=== PATIENT | male | born 1975 | race African-American/Black ===

== ENCOUNTER 2018-04-18 23:17 | Emergency (ER) | payer OTHER ==
[~2018-04-18] VITALS: Ht 177.8 cm; Wt 87.7 kg
--- OUTSIDE RECORDS SUMMARY | 2018-04-18 23:20 | XMS REPORT | Clinical Summary ---
Author Author [facility] Organization [facility] Address Unknown Phone Unavailable Care Team Providers Care Crochet Beader Name Role Phone Asked, No Pcp PCP Unavailable Allergies No Known Allergies Medications End Date Status Medication Sig Dispensed Refills Start Date Active sertraline (ZOLOFT) 25 MG Take 25 mg by 0 tablet mouth daily. Active traZODone (DESYREL) 100 Take 100 mg 0 MG tablet by mouth nightly. Active methylphenidate HCl Take by 0 (RITALIN ORAL) mouth. Active losartan-hydrochlorothiaz TK 1 T PO D 0 sridevi (HYZAAR) 50-12.5 mg 8 per tablet 01/06/2018 Discontinued lisinopril Take 10 mg by 0 (PRINIVIL,ZESTRIL) 10 mg mouth daily. tablet 08/16/2017 clindamycin (CLEOCIN) 300 Take 1 21 capsule 0 MG capsule capsule (300 8 mg total) by mouth 3 (three) times a day for 7 days. 12/21/2017 omeprazole (PriLOSEC) 20 Take 1 30 capsule 0 MG capsule capsule (20 8 mg total) by mouth daily for 30 days. 11/26/2017 ondansetron ODT (ZOFRAN Take 1 tablet 20 tablet 0 ODT) 4 MG disintegrating (4 mg total) 8 tablet by mouth every 8 (eight) hours as needed for nausea or vomiting for up to 5 days. 01/13/2018 traMADol (ULTRAM) 50 mg Take 1 tablet 9 tablet 0 tablet (50 mg total) 8 by mouth every 6 (six) hours as needed for severe pain for up to 9 doses. Active Problems Not on file Encounters Care Team Description Date Type Specialty Reyna Holder MD Abdominal pain, unspecified abdominal location (Primary Dx); Nausea and vomiting, intractability of vomiting not specified, unspecified vomiting type 01/06/2018 Emergency Emergency Medicine Gaston Jane MD Abdominal pain, unspecified abdominal location (Primary Dx); Hematuria, unspecified type 11/21/2017 Emergency Emergency Medicine Ita Norman NP 08/09/2017 Anesthesia Plastic Surgery Event Efrem Howard MD RELEASE, CARPAL TUNNEL W/ ULNAR NERVE DECOMPRESSION 08/09/2017 Surgery Plastic Surgery Efrem Howard MD 08/09/2017 Hospital Plastic Surgery Encounter Efrem Howard MD Preoperative testing (Primary Dx) 08/02/2017 Pre-Admit Pre-Admission Testing Testing Appointment after 04/17/2017 Social History Date Tobacco Use Types Packs/Day Years Used Never Smoker Smokeless Tobacco: Never Used Alcohol Use Drinks/Week oz/Week Comments No Sex Assigned at Date Recorded Not on file Industry Job Start Date Occupation Not on file Not on file Not on file Travel End Travel History Travel Start No recent travel history available. Last Filed Vital Signs Time Taken Vital Sign Reading 01/06/2018 11:23 PM TONE ARTIST APPRENTICE Blood Pressure 126/85 01/06/2018 11:23 PM TONE ARTIST APPRENTICE Pulse 67 01/06/2018 11:23 PM TONE ARTIST APPRENTICE Temperature 37.1 C (98.7 F) 01/06/2018 11:23 PM TONE ARTIST APPRENTICE Respiratory Rate 16 01/06/2018 11:23 PM TONE ARTIST APPRENTICE Oxygen Saturation 99% - Inhaled Oxygen - Concentration 01/06/2018 5:26 PM TONE ARTIST APPRENTICE Weight 86.2 kg (190 lb) 01/06/2018 5:26 PM TONE ARTIST APPRENTICE Height 177.8 cm (5' 10") 01/06/2018 5:26 PM TONE ARTIST APPRENTICE Body Mass Index 27.26 Plan of Treatment Health Maintenance Due Date Last Done Comments INFLUENZA VACCINE 10/02/2017 Implants Device Identifier Shelf Expiration Date Model / Serial / Lot Implanted Type Area Manufactur er 04/04/2022 XL [id number] / [id number] / [id number] Epifix Xl 4 X 10 - Surgical Left: Elbow MIMEDX [id number] - [id number] Implants; [employer] Implanted: Qty: 1 on 08/09/2017 by [employer]ers; Efrem Howard MD Extenders; Surgical Wires Procedures Comments Procedure Name Priority Date/Time Associated Diagnosis CT ABDOMEN PELVIS WO STAT 01/06/2018 CONTRAST 10:34 PM TONE ARTIST APPRENTICE ECG ED PRELIMINARY Routine 01/06/2018 INTERPRETATION 8:58 PM TONE ARTIST APPRENTICE URINALYSIS SCREEN AND STAT 01/06/2018 MICROSCOPY, WITH REFLEX 7:35 PM TONE ARTIST APPRENTICE TO CULTURE URINE CULTURE STAT 01/06/2018 7:35 PM TONE ARTIST APPRENTICE ESTIMATED GFR STAT 01/06/2018 7:29 PM TONE ARTIST APPRENTICE LIPASE LEVEL STAT 01/06/2018 7:29 PM TONE ARTIST APPRENTICE COMPREHENSIVE METABOLIC STAT 01/06/2018 PANEL 7:29 PM TONE ARTIST APPRENTICE HC COMPLETE BLD COUNT STAT 01/06/2018 W/AUTO DIFF 7:29 PM [address]ICE [address] ABDOMEN PELVIS W STAT 11/21/2017 CONTRAST 3:31 AM CDT ESTIMATED GFR STAT 11/21/2017 1:25 AM CDT LIPASE LEVEL STAT 11/21/2017 1:25 AM CDT COMPREHENSIVE METABOLIC STAT 11/21/2017 PANEL 1:25 AM CDT HC COMPLETE BLD COUNT STAT 11/21/2017 W/AUTO DIFF 1:25 AM CDT URINALYSIS SCREEN AND STAT 11/21/2017 MICROSCOPY, WITH REFLEX 1:03 AM CDT TO CULTURE ME AN ELECTIVE Routine 08/09/2017 SUPRAGLOTTIC AIRWAY 8:09 AM CDT Procedure Note - Stefani Little CRNA - 08/09/2017 8:09 AM CDT Airway Date/Time: 08/09/2017 7:57 AM Performed by: STEFANI LITTLE Authorized by: BILLIE JAMISON Location: OR Urgency: Elective Performed by: resident/C RNA/AA Preoxygena chuy with 100% O2: Yes C-spine Precaution s Maintained Throughout : Yes Mask Ventilatio n: Easy mask Final Airway Type: Supraglott ic airway Final LMA: ProSeal LMA Size: 5 Number of Attempts at Approach: 1 RELEASE, CARPAL TUNNEL 08/09/2017 Carpal tunnel syndrome on 7:30 AM CDT left Case Notes EST 90 MIN Special Needs EST 90 MIN ECG PRE/POST OP Routine 08/02/2017 Preoperative testing 3:16 PM CDT ZZESTIMATED GFR Routine 08/02/2017 3:12 PM CDT BASIC METABOLIC PANEL Routine 08/02/2017 Preoperative testing 3:12 PM CDT after 04/17/2017 Results * CT Abdomen Pelvis Wo Contrast (01/06/2018 10:34 PM TONE ARTIST APPRENTICE) Narrative Performed At CT ABDOMEN PELVIS WO CONTRAST RADIANT CLINICAL INDICATION:appendicitis TECHNIQUE:Multidetector CT of the abdomen and pelvis was performed without intravenous contrast with multiplanar reconstructions. CT imaging was performed with iterative reconstruction technique and/or automated exposure control to reduce radiation dose. COMPARISON:11/21/2017. FINDINGS: Please note, the lack of intravenous and oral contrast limits evaluation of the abdominal and pelvic viscera. LOWER THORAX:Clear. LIVER:Normal. BILIARY:Normal. SPLEEN:Normal. PANCREAS:Normal. ADRENALS:Normal. KIDNEYS:No mass or hydronephrosis. GI:Large and small bowel are normal in caliber.There are no inflammatory changes.Appendix is visualized and appears normal. VASCULAR:Unremarkable LYMPH NODES:No enlarged lymph nodes in the abdomen or pelvis. PELVIS:The urinary bladder is normal in appearance. BONES:There are no acute osseous abnormalities. There are bilateral L5 pars defects with a grade 1 anterolisthesis of L5 on S1. OTHER:There is no ascites or pneumoperitoneum. IMPRESSION: No acute intra-abdominal abnormality is identified. [facility]-[id number] Procedure Note Interface, Radiology Results Incoming - 01/06/2018 10:54 PM TONE ARTIST APPRENTICE CT ABDOMEN PELVIS WO CONTRAST CLINICAL INDICATION: appendicitis TECHNIQUE: Multidetector CT of the abdomen and pelvis was performed without intravenous contrast with multiplanar reconstructions. CT imaging was performed with iterative reconstruction technique and/or automated exposure control to reduce radiation dose. COMPARISON: 11/21/2017. FINDINGS: Please note, the lack of intravenous and oral contrast limits evaluation of the abdominal and pelvic viscera. LOWER THORAX: Clear. LIVER: Normal. BILIARY: Normal. SPLEEN: Normal. PANCREAS: Normal. ADRENALS: Normal. KIDNEYS: No mass or hydronephrosis. GI: Large and small bowel are normal in caliber. There are no inflammatory changes. Appendix is visualized and appears normal. VASCULAR: Unremarkable LYMPH NODES: No enlarged lymph nodes in the abdomen or pelvis. PELVIS: The urinary bladder is normal in appearance. BONES: There are no acute osseous abnormalities. There are bilateral L5 pars defects with a grade 1 anterolisthesis of L5 on S1. OTHER: There is no ascites or pneumoperitoneum. IMPRESSION: No acute intra-abdominal abnormality is identified. [facility]-[id number] Performing Organization Address City/State/Zipcode Phone Number [facility] [address] [place] [address] * ECG ED Preliminary Interpretation - NOT AN ORDER (01/06/2018 8:58 PM TONE ARTIST APPRENTICE) Narrative Performed At Reyna Holder MD 01/08/20181:34 PM ECG ED Preliminary Interpretation - Not an Order Performed by: REYNA HOLDER Authorized by: REYNA HOLDER Rate: ECG rate:109 ECG rate assessment: tachycardic Rhythm: Rhythm: sinus rhythm Ectopy: Ectopy: none Conduction: Conduction: abnormal Abnormal conduction: incomplete RBBB ST segments: ST segments:Normal T waves: T waves: normal * Urinalysis screen and microscopy, with reflex to culture (01/06/2018 7:35 PM TONE ARTIST APPRENTICE) Only the most recent of 2 results within the time period is included. Specimen site Clean catch [facility] DEPARTMENT OF PATHOLOGY AND GENOMIC MEDICINE Color, UA Yellow [facility] DEPARTMENT OF PATHOLOGY AND GENOMIC MEDICINE Appearance, UA Clear [facility] DEPARTMENT OF PATHOLOGY AND GENOMIC MEDICINE Specific gravity, UA 1.020 1.001 - 1.035 [facility] DEPARTMENT OF PATHOLOGY AND GENOMIC MEDICINE pH, UA 7.0 5.0 - 8.5 [facility] DEPARTMENT OF PATHOLOGY AND GENOMIC MEDICINE Protein, UA Negative Negative [facility] DEPARTMENT OF PATHOLOGY AND GENOMIC MEDICINE Glucose, UA Negative Negative [facility] DEPARTMENT OF PATHOLOGY AND GENOMIC MEDICINE Ketones, UA Negative Negative [facility] DEPARTMENT OF PATHOLOGY AND GENOMIC MEDICINE Bilirubin, UA Negative Negative [facility] DEPARTMENT OF PATHOLOGY AND GENOMIC MEDICINE Blood, UA Negative Negative [facility] DEPARTMENT OF PATHOLOGY AND GENOMIC MEDICINE Nitrite, UA Negative Negative [facility] DEPARTMENT OF PATHOLOGY AND GENOMIC MEDICINE Urobilinogen, UA 2.0 (A) <2.0 [facility] DEPARTMENT OF PATHOLOGY AND GENOMIC MEDICINE Leukocyte esterase, UA Negative Negative [facility] DEPARTMENT OF PATHOLOGY AND GENOMIC MEDICINE WBC, UA 1 0 - 1 /HPF [facility] DEPARTMENT OF PATHOLOGY AND GENOMIC MEDICINE RBC, UA 5 (A) 0 - 5 /HPF [facility] DEPARTMENT OF PATHOLOGY AND GENOMIC MEDICINE Bacteria, UA None seen None seen [facility] DEPARTMENT OF PATHOLOGY AND GENOMIC MEDICINE Yeast, UA None seen [facility] DEPARTMENT OF PATHOLOGY AND GENOMIC MEDICINE Yeast with pseudohyphae, None seen [facility] DEPARTMENT OF UA PATHOLOGY AND GENOMIC MEDICINE Specimen Urine Performing Organization Address City/[facility] [place] [address] PATHOLOGY AND GENOMIC MEDICINE * Urine culture (01/06/2018 7:35 PM TONE ARTIST APPRENTICE) Urine culture SEE COMMENTComment: [facility] DEPARTMENT OF Bacteriuria screen negative. PATHOLOGY AND GENOMIC MEDICINE Performing Organization Address City/[facility] [place] [address] PATHOLOGY AND GENOMIC MEDICINE * Estimated GFR (01/06/2018 7:29 PM TONE ARTIST APPRENTICE) Only the most recent of 2 results within the time period is included. Estimated GFR >=90 mL/min/1.73 m2 [facility] DEPARTMENT OF Comment: PATHOLOGY AND [employer] GENOMIC MEDICINE rpretation G1 >=90 Normal or high G2 60-89Mildly decreased [id number] Mildly to moderately decreased [id number] Moderately to severely decreased G4 15-29Severely decreased G5 <15Kidney failure The eGFR was calculated using the Chronic Kidney Disease Epidemiology Collaboration (CKD-EPI) equation. Interpretation is based on recommendations of the National Kidney Foundation-Kidney Disease Outcomes Quality Initiative (NKF-KDOQI) published in 2014. Specimen Plasma specimen Performing Organization Address City/[facility]/[place] [address] PATHOLOGY AND GENOMIC MEDICINE * CBC with platelet and differential (01/06/2018 7:29 PM TONE ARTIST APPRENTICE) Only the most recent of 2 results within the time period is included. WBC 4.9 4.2 - 11.0 k/uL [facility] DEPARTMENT OF PATHOLOGY AND GENOMIC MEDICINE RBC 4.83 4.04 - 5.86 m/uL [facility] DEPARTMENT OF PATHOLOGY AND GENOMIC MEDICINE HGB 12.7 (L) 13.0 - 17.3 g/dL [facility] DEPARTMENT OF PATHOLOGY AND GENOMIC MEDICINE HCT 39.9 34.0 - 45.0 % [facility] DEPARTMENT OF PATHOLOGY AND GENOMIC MEDICINE MCV 82.6 80.0 - 98.0 fL [facility] DEPARTMENT OF PATHOLOGY AND GENOMIC MEDICINE MCH 26.3 (L) 27.0 - 34.0 pg [facility] DEPARTMENT OF PATHOLOGY AND GENOMIC MEDICINE MCHC 31.8 31.5 - 36.5 g/dL [facility] DEPARTMENT OF PATHOLOGY AND GENOMIC MEDICINE RDW - SD 38.5 37.0 - 51.0 fL [facility] DEPARTMENT OF PATHOLOGY AND GENOMIC MEDICINE MPV 8.9 7.4 - 10.4 fL [facility] DEPARTMENT OF PATHOLOGY AND GENOMIC MEDICINE Platelet count 232 150 - 400 k/uL [facility] DEPARTMENT OF PATHOLOGY AND GENOMIC MEDICINE Nucleated RBC 0.00 /100 WBC [facility] DEPARTMENT OF PATHOLOGY AND GENOMIC MEDICINE Neutrophils 49.5 36.0 - 66.0 % [facility] DEPARTMENT OF PATHOLOGY AND GENOMIC MEDICINE Lymphocytes 34.6 24.0 - 44.0 % [facility] DEPARTMENT OF PATHOLOGY AND GENOMIC MEDICINE Monocytes 8.8 (H) 0.0 - 6.0 % [facility] DEPARTMENT OF PATHOLOGY AND GENOMIC MEDICINE Eosinophils 5.5 0.0 - 6.0 % [facility] DEPARTMENT OF PATHOLOGY AND GENOMIC MEDICINE Basophils 1.2 0.0 - 1.2 % [facility] DEPARTMENT PATHOLOGY AND GENOMIC MEDICINE Immature granulocytes 0.4 0.0 - 1.0 % [facility] OF PATHOLOGY AND GENOMIC MEDICINE Specimen Blood Performing Organization Address City/[facility] [place] [address] PATHOLOGY AND GENOMIC [facility] * Lipase level (01/06/2018 7:29 PM TONE ARTIST APPRENTICE) Only the most recent of 2 results within the time period is included. Lipase 39 13 - 60 U/L [facility] PATHOLOGY AND GENOMIC MEDICINE Specimen Plasma specimen Performing Organization Address City/[facility] [place] [address] PATHOLOGY AND [facility] MEDICINE * Comprehensive metabolic panel (01/06/2018 7:29 PM TONE ARTIST APPRENTICE) Only the most recent of 2 results within the time period is included. Sodium 139 135 - 150 mEq/L [facility] PATHOLOGY AND GENOMIC MEDICINE Potassium 4.0 3.5 - 5.0 mEq/L [facility] DEPARTMENT OF PATHOLOGY AND GENOMIC MEDICINE Chloride 101 98 - 112 mEq/L [facility] DEPARTMENT OF PATHOLOGY AND GENOMIC MEDICINE CO2 31 24 - 31 mmol/L [facility] DEPARTMENT OF PATHOLOGY AND GENOMIC MEDICINE Anion gap 7@ANIO 7 - 15 mEq/L [facility] DEPARTMENT OF PATHOLOGY AND GENOMIC MEDICINE BUN 11 7 - 18 mg/dL [facility] OF PATHOLOGY AND GENOMIC MEDICINE Creatinine 1.00 0.70 - 1.20 mg/dL [facility] DEPARTMENT OF PATHOLOGY AND GENOMIC MEDICINE Glucose 80 65 - 100 mg/dL [facility] DEPARTMENT OF PATHOLOGY AND GENOMIC MEDICINE Calcium 8.8 8.3 - 10.2 mg/dL [facility] DEPARTMENT OF PATHOLOGY AND GENOMIC MEDICINE Protein 6.4 6.3 - 8.3 g/dL [facility] OF PATHOLOGY AND GENOMIC MEDICINE Albumin 3.6 3.5 - 5.0 g/dL [facility] OF PATHOLOGY AND GENOMIC MEDICINE A/G ratio 1.3 0.7 - 3.8 [facility] DEPARTMENT OF PATHOLOGY AND GENOMIC MEDICINE Alkaline phosphatase 55 0 - 129 U/L [facility] OF PATHOLOGY AND GENOMIC MEDICINE AST 20 10 - 50 U/L [facility] OF PATHOLOGY AND GENOMIC MEDICINE ALT 14 5 - 50 U/L [facility] DEPARTMENT OF PATHOLOGY AND GENOMIC MEDICINE Total bilirubin <0.3 0.2 - 1.2 mg/dL [facility] OF PATHOLOGY AND GENOMIC MEDICINE Specimen Plasma specimen Performing Organization Address City/State/Zipcode Phone Number [place] [address] [place] [address] PATHOLOGY AND GENOMIC MEDICINE * CT Abdomen Pelvis W Contrast (11/21/2017 3:31 AM CDT) Narrative Performed At CT ABDOMEN PELVIS W CONTRAST RADIANT CLINICAL INDICATION:right flank pain TECHNIQUE: Multidetector CT of the abdomen and pelvis was performed following intravenous administration of iodinated contrast with multiplanar reformats. CT scans are performed using radiation dose reduction techniques (iterative reconstruction and/or automated exposure control). Technical factors are evaluated and adjusted to ensure appropriate moderation of exposure. Automated dose management technology is applied to adjust radiation exposure while achieving a diagnostic quality image. COMPARISON:None. FINDINGS: Lung bases:Clear. Liver:Normal. Gallbladder and biliary:Gallbladder is contracted. Common bile duct is not dilated. Pancreas:Normal. Spleen:Normal. Gastrointestinal:Large and small bowel are normal in caliber. Appendix is partially visualized. Visualized portions of the appendix appear within normal limits. No focal inflammatory changes within the right lower quadrant of the abdomen. Adrenals:Normal. Kidneys and ureters:No mass or hydronephrosis. Urinary bladder:Normal. Lymph nodes:No enlarged lymph nodes in the abdomen or pelvis. Peritoneum:No ascites or free air. Vascular:Mild atherosclerotic changes of the abdominal aorta and major branch vessels. Reproductive organs:Prostate gland measures 4.9 cm in transverse dimension. Abdominal wall: Tiny fat-containing umbilical hernia. Bones:Chronic bilateral L5 spondylolysis. Mild degenerative changes. IMPRESSION: Negative CT for acute pathology within the abdomen and pelvis. [facility]-[id number] Procedure Note Interface, Radiology Results Incoming - 11/21/2017 3:[address] ABDOMEN PELVIS W CONTRAST CLINICAL INDICATION: right flank pain TECHNIQUE: Multidetector CT of the abdomen and pelvis was performed following intravenous administration of iodinated contrast with multiplanar reformats. CT scans are performed using radiation dose reduction techniques (iterative reconstruction and/or automated exposure control). Technical factors are evaluated and adjusted to ensure appropriate moderation of exposure. Automated dose management technology is applied to adjust radiation exposure while achieving a diagnostic quality image. COMPARISON: None. FINDINGS: Lung bases: Clear. Liver: Normal. Gallbladder and biliary: Gallbladder is contracted. Common bile duct is not dilated. Pancreas: Normal. Spleen: Normal. Gastrointestinal: Large and small bowel are normal in caliber. Appendix is partially visualized. Visualized portions of the appendix appear within normal limits. No focal inflammatory changes within the right lower quadrant of the abdomen. Adrenals: Normal. Kidneys and ureters: No mass or hydronephrosis. Urinary bladder: Normal. Lymph nodes: No enlarged lymph nodes in the abdomen or pelvis. Peritoneum: No ascites or free air. Vascular: Mild atherosclerotic changes of the abdominal aorta and major branch vessels. Reproductive organs: Prostate gland measures 4.9 cm in transverse dimension. Abdominal wall: Tiny fat-containing umbilical hernia. Bones: Chronic bilateral L5 spondylolysis. Mild degenerative changes. IMPRESSION: Negative CT for acute pathology within the abdomen and pelvis. [facility]-[id number] Performing Organization Address City/State/Zipcode Phone Number [facility] [phone] [place] [address] * ECG Pre/Post Op (08/02/2017 3:16 PM CDT) Ventricular rate 65 [facility] Atrial rate 65 [facility] ME interval 120 [facility] QRSD interval 84 [facility] QT interval 398 [facility] MUSE QTC interval 413 [facility] M[facility] P axis 1 70 [facility] MUSE QRS axis 1 48 [facility] MUSE T wave axis 17 [facility] MUSE EKG impression Normal sinus rhythm-Normal [facility] MUSE ECG-No previous ECGs available- Performing Organization Address City/[facility] Phone Number [facility] [address] [place] [address] * Estimated GFR (08/02/2017 3:12 PM CDT) GFR Non Af Amer 81 mL/min/1.73 m2 [facility] DEPARTMENT OF PATHOLOGY AND GENOMIC MEDICINE GFR Af Amer >90 mL/min/1.73 m2 [facility] DEPARTMENT OF Comment: PATHOLOGY AND Chronic kidney disease: <60 GENOMIC MEDICINE mL/min/1.73m2 Kidney failure: <15 mL/min/1.73m2 The estimated GFR is calculated from the IDMS-traceable Modification of Diet in Renal Disease Equation. The accuracy of the calculation is poor when the creatinine is normal. Calculated values >90 mL/min/1.73m2 are not reported. This equation has not been validated in children (<18 years), women, the elderly (>70 years), or ethnic groups other than Caucasians and Americans. Specimen Plasma specimen Performing Organization Address City/[facility] Phone Number [facility] [address] [place] [address] PATHOLOGY AND GENOMIC MEDICINE * Basic metabolic panel (08/02/2017 3:12 PM CDT) Sodium 141 135 - 148 mEq/L [facility] DEPARTMENT OF PATHOLOGY AND GENOMIC MEDICINE Potassium 3.4 (L) 3.5 - 5.0 mEq/L [facility] DEPARTMENT OF PATHOLOGY AND GENOMIC MEDICINE Chloride 100 98 - 112 mEq/L [facility] DEPARTMENT OF PATHOLOGY AND GENOMIC MEDICINE CO2 30 24 - 31 mEq/L [facility] DEPARTMENT OF PATHOLOGY AND GENOMIC MEDICINE Anion gap 11@ANIO 7 - 15 mEq/L [facility] DEPARTMENT OF PATHOLOGY AND GENOMIC MEDICINE BUN 15 6 - 20 mg/dL [facility] DEPARTMENT OF PATHOLOGY AND GENOMIC MEDICINE Creatinine 1.0 0.7 - 1.2 mg/dL [facility] DEPARTMENT OF PATHOLOGY AND GENOMIC MEDICINE Glucose 106 (H) 65 - 99 mg/dL [facility] DEPARTMENT OF PATHOLOGY AND GENOMIC MEDICINE Calcium 8.8 8.3 - 10.2 mg/dL [facility] DEPARTMENT OF PATHOLOGY AND GENOMIC MEDICINE Specimen Plasma specimen Performing Organization Address City/State/Zipcode Phone Number [facility] DEPARTMENT OF [facility] [place] [address] PATHOLOGY AND GENOMIC MEDICINE after 04/17/2017 Insurance Payer Benefit Subscriber ID Type Phone Address Plan / Group CIG[employer] CIGNA OPEN xxxxxxxxxxx O ACCESS/NET WORK Advance Directives Patient has advance care planning documents on file. For more information, ronnie christianson contact: Osbaldo Waite [address] [place] [address]
[2018-04-18] MEDS ORDERED: KETOROLAC TROMETHAMINE 30 MG/ML VIAL IM STA (23:39)
[2018-04-19] MEDS ORDERED: MORPHINE SULFATE INJ 4 MG/ML INJ 1ML IM STA (00:16)
[2018-04-19] MEDS ORDERED: ONDANSETRON HCL 4 MG ORAL DISINTEGRATING TAB PO STA (00:16)
[2018-04-19 01:20] VITALS: BP 152/97
== END 2018-04-19 01:27 | disposition home or self-care (01) ==
LOC: FSED 23:17
DX: M54.5 Low back pain (principal); I10 Essential (primary) hypertension
CPT/HCPCS: 99282